=== PATIENT | female | born 1965 | race Hispanic/Latino ===

== ENCOUNTER 2016-10-23 15:11 | Emergency (ER) | payer SELFPAY ==
[~2016-10-23] VITALS: Ht 162.6 cm; Wt 73.7 kg
[~2016-10-23 15:11] MED LIST: FLEXERIL10 MG PO; LIDODERM 5% P1 PATCH TD; NAPROXEN500 MG PO
[2016-10-23 16:11] LABS: EOSINOPHIL (%) 1.4 % (0-5); EOSINOPHIL COUNT 0.1 K/uL (0-0.3); HEMATOCRIT 36.9 % (36.0-46.0); IMMATURE GRANULOCYTE (%) 0.2 % (0.0-0.7); INSTRUMENT ABS NEUTROPHIL CT 6.8 K/uL; LYMPHOCYTE COUNT 1.4 K/uL (1.0-2.8); MCH 28.8 PG (29.0-34.0); MCHC 32.5 G/DL (30.0-36.0); MCV 88.7 FL (83-99); MEAN PLAT.VOLUME 11.3 uM^3 (9.5-12.4); MONOCYTE (%) 4.9 % (3-12); MONOCYTE COUNT 0.4 K/uL (0-0.8); NEUTROPHIL (%) 77.8 % (45-76); NEUTROPHIL COUNT 6.8 K/uL (1.8-6.4); PLATELET COUNT 235 K/uL (156-360); RBC DIS.WIDTH-CV 13.1 % (11.8-14.6); RBC DIS.WIDTH-SD 42.7 % (39-53); RED BLOOD COUNT 4.16 M/uL (3.80-5.20); WHITE BLOOD COUNT 8.7 K/uL (4.1-10.2)
[2016-10-23 16:21] LABS: CHLORIDE 105 mEq/L (99-109); POTASSIUM 3.6 mEq/L (3.7-5.4); SODIUM 141 mEq/L (136-147)
[2016-10-23 16:24] LABS: GLUCOSE 105 mg/dL (70-99)
[2016-10-23 16:25] LABS: ANION GAP 12 MEQ/L (2-14)
[2016-10-23 16:26] LABS: TOTAL BILIRUBIN 0.4 mg/dL (0.0-1.0)
[2016-10-23 16:27] LABS: ALKALINE PHOSPHATASE 94 IU/L (3-129); GFR ESTIMATE (CALCULATED) > 59 mL/min/
[2016-10-23 16:28] LABS: UREA NITROGEN (BUN) 16 mg/dL (9-23)
[2016-10-23 16:32] LABS: TROP-I INTERPRETATION NEGATIVE; TROPONIN-I < 0.01 ng/mL (0.0-0.30)
[2016-10-23 16:36] LABS: D-DIMER ELISA < 150.00 ng/mLDDU (<230)
[2016-10-23 17:15] LABS: ADD MIUA? NO; BILIRUBIN NEGATIVE; BLOOD NEGATIVE; COLOR STRAW ((YELLOW)); GLUCOSE (STRIP) NEGATIVE; KETONES NEGATIVE; LEUKOCYTES NEGATIVE; NITRITE NEGATIVE; PROTEIN (STRIP) NEGATIVE; SPECIFIC GRAVITY 1.011 (1.000-1.030); UCUL ADDED? NO; UROBILINOGEN 0.2 MG/DL (0.2-1.0)
[2016-10-23 21:06] VITALS: BP 141/68
== END 2016-10-23 21:07 | disposition home or self-care (01) ==
LOC: EME 15:11
PROVIDERS: Emergency Medicine
DX: R55 Syncope and collapse (principal); R10.30 Lower abdominal pain, unspecified; R06.02 Shortness of breath; R51 Headache; N28.1 Cyst of kidney, acquired; Z90.49 Acquired absence of other specified parts of digestive tract; Z87.891 Personal history of nicotine dependence
CPT/HCPCS: 70450; 74177; 80053; 81003; 84484; 85025; 85379; 93005; 99281; 99285; J7030